=== PATIENT | female | born 1990 | race Caucasian/White ===

== ENCOUNTER 2017-10-27 15:11 | Emergency (ER) | payer OTHER ==
[~2017-10-27] VITALS: Ht 157.5 cm; Wt 59.1 kg
[2017-10-27 15:14] VITALS: BP 144/98; TEMP 99.6
[2017-10-27 16:02] LABS: BASO % 0.2 % (0.0-2.0); EOS % 0.5 % (0-4.0); GRAN # 4.4 (1.4-6.5); GRAN % 68.2 % (42.2-75.2); HEMATOCRIT 37.7 % (37.0-47.0); HEMOGLOBIN 12.2 g/dl (12.5-16.0); LYMPH # 1.5 (1.2-3.4); LYMPH % 23.6 % (20.0-51.0); MEAN CELL VOLUME 85 fl (80.0-100.0); MEAN CORPUSCULAR HEMOGLOBIN 28 pg (27.0-31.0); MEAN CORPUSCULAR HGB CONC 32 g/dl (33.0-37.0); MONO # 0.5 (0.1-0.6); MONO % 7.2 % (1.7-9.3); PLATELET COUNT 246 K/mm3 (130-400); RED BLOOD COUNT 4.44 M/mm3 (4.10-5.30); REDCELL DISTRIBUTION WIDTH-CV 14.7 % (11.5-14.5)
[2017-10-27 16:10] LABS: ALANINE AMINOTRANSFERASE 19 U/L (9-52); ALBUMIN 3.9 gm/dL (3.5-5.0); ALKALINE PHOSPHATASE 83 U/L (50-136); ANION GAP 8 mmol/L (7-16); AST,SGOT 16 U/L (15-37); BILIRUBIN,TOTAL 0.6 mg/dL (0.0-1.0); BLOOD UREA NITROGEN 13 mg/dL (7-17); CALCIUM 9.3 mg/dL (8.4-10.2); CARBON DIOXIDE 24 mmol/L (22-30); CHLORIDE 103 mmol/L (98-107); CREATININE, serum 0.69 mg/dL (0.52-1.25); GLUCOSE 93 mg/dL (74-106); LIPASE 35 U/L (23-300); POTASSIUM 4.1 mmol/L (3.4-5.0); SODIUM 135 mmol/L (137-145); TOTAL PROTEIN 7.5 gm/dL (6.4-8.2)
[2017-10-27 16:25] LABS: TROPONIN-I < 0.012 ng/mL (0.000-0.034)
[2017-10-27] MEDS ORDERED: PROTONIX 40MG T40 MG PO (17:03)
[2017-10-27 17:30] VITALS: PULSE 73
== END 2017-10-27 17:30 | disposition home or self-care (01) ==
LOC: COL.ER 15:11
PROVIDERS: Emergency Medicine
DX: S39.92XA Unspecified injury of lower back, initial encounter (principal); K21.9 Gastro-esophageal reflux disease without esophagitis; F17.210 Nicotine dependence, cigarettes, uncomplicated; X58.XXXA Exposure to other specified factors, initial encounter

== ENCOUNTER 2017-12-05 00:05 | Emergency (ER) | payer MEDICAID ==
[~2017-12-05] VITALS: Ht 157.5 cm; Wt 59.1 kg
[~2017-12-05 00:05] MED LIST: PROTONIX 40MG T40 MG PO
[2017-12-05 00:10] VITALS: PULSE 97; TEMP 97.3
[2017-12-05 06:20] VITALS: BP 111/53
== END 2017-12-05 06:20 | disposition home or self-care (01) ==
LOC: COL.ER 00:05
DX: S81.012A Laceration without foreign body, left knee, initial encounter (principal); S61.212A Laceration without foreign body of right middle finger without damage to nail, initial encounter; F10.129 Alcohol abuse with intoxication, unspecified; Y90.8 Blood alcohol level of 240 mg/100 ml or more
CPT/HCPCS: J1630; J7030

== ENCOUNTER 2017-12-17 17:37 | Emergency (ER) | payer MEDICAID ==
[2017-12-17 17:49] VITALS: BP 127/88; PULSE 98; TEMP 98.8
[2017-12-17] MEDS ORDERED: CEPHALEXIN500 M1 PO (18:06)
== END 2017-12-17 18:15 | disposition home or self-care (01) ==
LOC: COL.ER 17:37
DX: S81.021D Laceration with foreign body, right knee, subsequent encounter (principal); W19.XXXD Unspecified fall, subsequent encounter

== ENCOUNTER → 2019-01-12 | Outpatient (CLI) | payer MEDICAID ==
[~2019-01-12] MED LIST changes: +CEPHALEXIN500 M1 PO
== END ==
LOC: DIA.ED 08:57
DX: O24.419 Gestational diabetes mellitus in pregnancy, unspecified control (principal); Z3A.20 20 weeks gestation of pregnancy
CPT/HCPCS: G0108

== ENCOUNTER → 2019-02-02 | Outpatient (CLI) | payer MEDICAID | LOC: DIA.ED 09:05 | DX: O24.419 Gestational diabetes mellitus in pregnancy, unspecified control (principal); Z3A.25 25 weeks gestation of pregnancy | CPT/HCPCS: G0108 ==

== ENCOUNTER → 2019-02-16 | Outpatient (CLI) | payer MEDICAID | LOC: DIA.ED 11:24 | DX: O24.419 Gestational diabetes mellitus in pregnancy, unspecified control (principal); Z3A.28 28 weeks gestation of pregnancy | CPT/HCPCS: G0108 ==

== ENCOUNTER 2019-03-29 07:55 | Outpatient (CLI) | payer MEDICAID ==
[~2019-03-29] VITALS: Ht 157.5 cm; Wt 76.4 kg
--- NOTE | 2019-03-29 08:00 | NUR ---
Patient ambulatory to LR3, with friends/family, changed into gown, FHR/TOCO monitors placed and explained. Patients states for the "last two days have been verónica every 5 minutes on and off, and this morning my mucus plug came out, and baby has been moving normal", Patient denies any leaking of fluid or vaginal bleeding. Plan of care discussed 0810: SVE-//-2 and amniotest negative and white mucus noted on glove. Assessment completed per Be SZYMANSKI. at nurses station and updated on patient and reviews prenatals. Patient updated on plan of care.
[2019-03-29 08:10] VITALS: BP 120/72; PULSE 81; TEMP 97.7
[2019-03-29 08:30] VITALS: BP 120/75; PULSE 81
--- NOTE | 2019-03-29 09:10 | NUR ---
SVE-//-2 and patient updated that cervix unchanged from last check. Patient updated on plan of care. Dr. Orosco at nurses station and orders to discharge home with instruction.s 0919: Patient off monitor to change into clothes.
[2019-03-29 09:19] VITALS: BP 158/72; PULSE 83
--- NOTE | 2019-03-29 09:30 | NUR ---
Reviewed discharge instructions with patient. Reviewed discomforts of , early labor and kick counts. Verbalized understanding. Ambulatory off unit with friends.
== END 2019-03-29 09:30 | disposition home or self-care (01) ==
LOC: LDRO 07:55
DX: O26.893 Other specified pregnancy related conditions, third trimester (principal); Z3A.40 40 weeks gestation of pregnancy

== ENCOUNTER 2019-03-30 08:04 | Inpatient (IN) | payer MEDICAID ==
[2019-03-30] VITALS (27 sets, daily range): BP systolic 109–143; BP diastolic 54–89; PULSE 54–93; TEMP 97.7–98.9
[~2019-03-30] VITALS: Ht 157.5 cm; Wt 76.4 kg
--- NOTE | 2019-03-30 07:50 | NUR ---
Patient to LR2 via wheelchair, changed into gown, FHR/TOCO monitors placed and explained. Patient was here yesterday for contractions and SVE at that time /2. Patient states "I have continued to contract since I left and they are every 3 minutes and stronger". Patient denies leaking of fluid, vaginal bleeding, decreased movement. Plan of care discussed. 0755: SVE-/-2 and intact bag felt at this time. Patient updated on plan of care. 0820: Dr. Corral on unit and at nurses station. Reviewing FHR strip and updated on patients status. Dr. Corral states to recheck after an hour and call him with update. 0900: SVE-2--2 Dr Corral called with update and order to admit and start pitocin and penicillin if patient is okay with plan.
--- NOTE | 2019-03-30 09:25 | NUR ---
0915: FHR baseline 140-145bpm and recurrent late subtle decelerations. Patient being repositioned. 0925: IV started per Yelitza SZYMANSKI in left hand, blood obtained and to lab, LR/Penicillin infusing. 1015: Patient requesting epidrual and Mikael Drew ELECTRICAL PROJECT ENGINEER notified. 1030: Patient sits up on edge of bed for placement of epidrual and Rodger ELECTRICAL PROJECT ENGINEER at bedside. Difficulty tracing FHR due to maternal position. 1037: Single shot given and patient tolerates well. 1042: Patient repositioned and safety precautions gone over and plan of care discussed. 1050: Pitocin started at 2Mu per protocol and Dr. Ruiz order. 1110: FHR baseline 145-150bpm and recurrent late decelerations tracing. Patient wedged left. Patient updated on FHR strip and decelerations and questions answered. 1120: Parikh catheter placed and patient tolerates well. SVE-2-3/80/-2. Patient right lateral with left leg resting in stirrup. FHR tracing variable decelerations. 1130: Dr. Corral called and updated on patient and FHR strip. 1142: at nurses station and reviewing FHR strip and late decelerations. 1145: Dr. Corral at bedside and updating patient on recurrent late decelerations and the possible need for if continues. 1147:SVE-3 and AROM at this time with meconium fluid noted at this time, patient notified of meconium. Dr. Corral states he will continue to watch FHR strip and will reassess, orders to keep pitocin on at 2mU at this time. Patient turned left lateral with right leg resting in stirrup.
--- NOTE | 2019-03-30 10:52 | NUR ---
Urine drug screen positive and Dr. Corral notified.
[2019-03-30 11:10] LABS: BASO % 0.1 % (0.0-2.0); EOS # 0.2 (0.0-0.7); EOS % 2.1 % (0-4.0); GRAN # 7.8 (1.4-6.5); GRAN % 74.6 % (42.2-75.2); HEMATOCRIT 38.7 % (37.0-47.0); HEMOGLOBIN 12.4 g/dl (12.5-16.0); LYMPH # 1.6 (1.2-3.4); LYMPH % 15.3 % (20.0-51.0); MEAN CELL VOLUME 81 fl (80.0-100.0); MEAN CORPUSCULAR HEMOGLOBIN 26 pg (27.0-31.0); MEAN CORPUSCULAR HGB CONC 32 g/dl (33.0-37.0); MEAN PLATELET VOLUME 10.7 fl (7.4-10.4); MONO # 0.8 (0.1-0.6); MONO % 7.5 % (1.7-9.3); PLATELET COUNT 256 K/mm3 (130-400); REDCELL DISTRIBUTION WIDTH-CV 14.8 % (11.5-14.5)
[2019-03-30 11:18] LABS: TRICYCLIC ANTIDEPRESS URINE NEGATIVE
--- NOTE | 2019-03-30 12:00 | NUR ---
Dr. Corral continues to watch FHR strip at nurses station. 1205: Dr. Corral talks to patient about his recommendation for at this time due to late decelerations and only on 2 Mu of pitocin. Patient agrees to surgery. Pitocin off at this time. FHR continues to trace recurrent late decelerations. Plan of care and surgery discussed and questions answered. Patient prepped and abdomen cleansed with prep solution. Mikael Drew ASSISTANT MERCHANDISE MANAGER at bedside and dosing patient. 1217: Patient off monitors and back to OR via bed. Patient onto to OR bed and refuses FHR heart tones to be doppled at this time.
--- NOTE | 2019-03-30 14:30 | NUR ---
Patient updated on urine drug screen being positive for Marjiuana. Ginette SZYMANSKI discusses the needs from due to positive screening. Patient states she "did marijuana about a month ago". Patient informed that social services designee will be notified and meet with her. Patient understands.
--- NOTE | 2019-03-30 15:05 | NUR ---
connection worker filed CPS report # [id number] at patient's urine drug screen was positive for cannabinoids at delivery.
[2019-03-31 05:00] VITALS: BP 106/47; PULSE 66; TEMP 98.1
[2019-03-31 07:30] VITALS: BP 97/53; PULSE 61; TEMP 97.4
--- NOTE | 2019-03-31 09:50 | NUR ---
RUPA harrington met with the patient to discuss resources and positive UDS. RUPA harrington provided [facility] Resource Guide and reviewed some of the services [facility] offers. The patient reports she has already signed up with [facility] and has attented baby classes. The patient inquired about receiveingassistance with April. RUPA harrington provided information on where she would go to receive rent assistance. The patient does not know who the FOB is. RUPA harrington provided education on child support services and the services they offer, such as DNA testing. The patient reports she did partake in marijuana usage approximately a month ago for lower stomach pain and then again within the few days prior to delivery for the same pain. RUPA harrington informed the patient that a CPS reports was made. The patient's nurse reports the baby was full term, that the patient is appropriate with the baby, and that she as no concerns. RUPA harrington collaborated the above information with the patient's nurse.
--- NOTE | 2019-03-31 10:57 | NUR ---
Initial visit; Mom thanked Construction Trench Digger for looking in on her and offering congratulations and God's blessings for the of her son. Construction Trench Digger thanked family for choosing [facility].
[2019-03-31 15:59] VITALS: BP 118/70; PULSE 67; TEMP 98.5
[2019-03-31 20:25] VITALS: BP 126/77; PULSE 75; TEMP 98.9
[2019-04-01 07:00] VITALS: BP 119/73; PULSE 75; TEMP 98
[2019-04-01] MEDS ORDERED: MOTRIN 800800 MG/TAB PO (07:41)
[2019-04-01] MEDS ORDERED: PERCOCET 325 MG1 TA2 PO (07:41)
--- NOTE | 2019-04-01 14:18 | NUR ---
1405 RN WALKED PATIENT AND TO CAR FOR DISCHARGE. CARSEAT BASE VERIFIED TO BE SECURED IN BACKSEAT. INFANT CARSEAT PLACED IN BASE FACING BACKWARDS. ALL QUESTIONS ANSWERED AT THIS TIME BY MOTHER.
== END 2019-04-01 14:05 | disposition home or self-care (01) | DRG 787 ==
LOC: LDRO 08:04 → LDR 09:20 → OB 09:20
PROVIDERS: ADMIT Obstetrics & Gynecology
PROC: 10D00Z1 Extraction of Products of Conception, Low, Open Approach (ICD-10-PCS; principal; 2019-03-30)
DX: O48.0 Post-term pregnancy (principal); O99.324 Drug use complicating childbirth; O77.0 Labor and delivery complicated by meconium in amniotic fluid; Z3A.40 40 weeks gestation of pregnancy; Z37.0 Single live birth; O76 Abnormality in fetal heart rate and rhythm complicating labor and delivery; Z87.891 Personal history of nicotine dependence; F12.90 Cannabis use, unspecified, uncomplicated; O24.420 Gestational diabetes mellitus in childbirth, diet controlled; Z86.19 Personal history of other infectious and parasitic diseases
CPT/HCPCS: J0690; J1885; J2370; J2400; J2405; J2540; J2590; J2791; J2795; J3010; J7120

== ENCOUNTER → 2020-05-11 | Outpatient (CLI) | payer MEDICAID ==
[~2020-05-11] MED LIST changes: +MOTRIN 800800 MG/TAB PO; +MUCINEX DM 30 M1 TE1 PO; +PERCOCET 325 MG1 TA2 PO; +TESSALON P100 MG/CAP PO; +VOLTAREN 75 DR75 MG PO
== END ==
LOC: ZCOL.LAB 08:00
DX: Z20.822 Contact with and (suspected) exposure to COVID-19 (principal)

== ENCOUNTER 2020-05-16 09:47 | Inpatient (IN) | payer MEDICAID ==
[~2020-05-16] VITALS: Ht 160 cm; Wt 77.3 kg
[2020-05-16] VITALS (18 sets, daily range): BP systolic 112–187; BP diastolic 51–97; PULSE 48–105; TEMP 97.7–98.7
[~2020-05-16 09:47] MED LIST changes: -MUCINEX DM 30 M1 TE1 PO; -TESSALON P100 MG/CAP PO; -VOLTAREN 75 DR75 MG PO
[2020-05-16 10:36] LABS: EOS % 0.5 % (0-4.0); GRAN # 6.4 (1.4-6.5); GRAN % 75.9 % (42.2-75.2); HEMOGLOBIN 11.3 g/dl (12.5-16.0); LYMPH # 1.4 (1.2-3.4); LYMPH % 16.4 % (20.0-51.0); MEAN CELL VOLUME 80 fl (80.0-100.0); MEAN CORPUSCULAR HEMOGLOBIN 26 pg (27.0-31.0); MEAN CORPUSCULAR HGB CONC 32 g/dl (33.0-37.0); MEAN PLATELET VOLUME 10.3 fl (7.4-10.4); MONO # 0.6 (0.1-0.6); MONO % 6.8 % (1.7-9.3); PLATELET COUNT 250 K/mm3 (130-400); RED BLOOD COUNT 4.43 M/mm3 (4.10-5.30); REDCELL DISTRIBUTION WIDTH-CV 14.8 % (11.5-14.5)
[2020-05-16 10:40] LABS: HEMATOCRIT 35.3 % (37.0-47.0)
--- NOTE | 2020-05-16 10:40 | NUR ---
PT HERE FOR REPEAT . PLAN OF CARE REVIEWED WITH PT AND SIGNIFICANT OTHER. FHT'S FOUND IN THE 130'S WITH MODERATE VARIABILITY. IV STARTED IN RIGHT HAND WITH LR INFUSING WITHOUT DIFFICULTY. LABS OBTAINED WITH IV START AND UA OBTAINED FOR URINE DRUG SCREEN PT HAS A HISTORY OF MARIJUANA USE.
[2020-05-16 11:42] LABS: TRICYCLIC ANTIDEPRESS URINE NEGATIVE
--- NOTE | 2020-05-16 13:14 | NUR ---
PT AMBULATES TO OPERATING ROOM WITH THIS RN AND SUPPORT PERSON. POSITIONED SITTING ON SIDE OF BED. SPINAL PLACED BY SHERMAN STEWART. PT POSITIONED LYING DOWN AFTER SPINAL WITH BLANKET UNDER RIGHT HIP. FHT'S 142. LAMBERT CATHETER PLACED. DURAPREP TO ABDOMEN. BY DR CHAVES AND DR KHAN. DELIVERY OF FEMALE AT 1220. COMPLETED. PT AWAKE AND ALERT.TRANSFERRED TO PACU. DENIES PAIN. ASSESSMENT COMPLETED. FUNDUS FIRM WITH NO BLEEDING OBSERVED.
--- NOTE | 2020-05-16 13:45 | NUR ---
PT TO ROOM AFTER DISCHARGE FROM PACU. AWAKE AND ALERT. DENIES PAIN. FUNDUS FIRM WITH MINIMAL BLEEDING ON CHUX PAD.
--- NOTE | 2020-05-16 14:30 | NUR ---
PT'S BP REMAINS ELEVATED. PHONED Booker SUAREZ CRNA, AT 1415 WITH ORDER RECEIVED TO GIVE 10MG HYDRALAZINE IV X1. ADMINISTERED AT 1420.
--- NOTE | 2020-05-16 15:15 | NUR ---
PT REPORTING FEELING IS RETURNING IN HER ABDOMEN AND LEGS. REQUESTING PAIN MEDICATION FOR PAIN 5/10. WILL GIVE ONE PERCOCET
--- NOTE | 2020-05-16 17:11 | NUR ---
PT HAS QUESTIONS ON HAVING THE FATHER OF THE BABY'S NAME ON THE CERTIFICATE. EXPLAINED HIS NAME CANNOT BE ON IT WITHOUT HIS WRITTEN ACKNOWLEDGMENT OF PATERNITY SINCE THEY HAVE NEVER BEEN . SHE STATES HE WILL NOT RETURN HER CALLS AND HAS BLOCKED HER ON EVERYTHING. SHE WANTS TO KNOW HOW SHE CAN GET CHILD SUPPORT. EXPLAINED THIS IS OUT OF MY REALM OF EXPERTISE SO WILL PLACE A SOCIAL SERVICE CONSULT.
--- NOTE | 2020-05-16 18:30 | NUR ---
Reporr recieved. removed from crib and handed to patient to feed. Motrin administered per order. Updated whiteboard and reviewed POC. Able to lift both legs off the bed. Going to eat dinner then will ambulate, provide jacek-care and remove richards catheter.
--- NOTE | 2020-05-16 20:40 | NUR ---
VS and assessment completed. Ambulated well to the restroom Parikh Catheter dc'd per physician's order. Pericare provided. Fresh linens to bed. Ambulating well in room Percocet administered per request following cares.
[2020-05-17 01:05] VITALS: BP 121/60; PULSE 78; TEMP 97.5
[2020-05-17 05:00] VITALS: BP 135/67; PULSE 96; TEMP 97.8
[2020-05-17 07:45] VITALS: BP 117/59; PULSE 70; TEMP 98.1
--- NOTE | 2020-05-17 09:24 | NUR ---
Initial visit; Patient thanked Vocational Rehabilitation Specialist for offering congratulations and God's blessings for the of her daughter. Vocational Rehabilitation Specialist thanked patient for choosing [facility].
[2020-05-17 15:15] VITALS: BP 123/66; PULSE 90; TEMP 98.6
[2020-05-17 20:55] VITALS: BP 129/63; PULSE 91; TEMP 98.7
--- NOTE | 2020-05-18 18:30 | NUR ---
Report recieved. Denied bedside report. Resting in bed. Updated whiteboard and reviewd POC.
[2020-05-18 20:40] VITALS: BP 122/64; PULSE 68; TEMP 97.9
[2020-05-19 07:00] VITALS: BP 118/59; PULSE 73; TEMP 97.4
--- NOTE | 2020-05-19 09:53 | NUR ---
(Late Entry 05/18/20) Refrigeration Service Inspector responded to consult in OB as patient has a history of drug use. SW met with patient and her brother, Yair Au (ph#[phone]) is at bedside. Patient states it is okay for SW to conduct assessment while her brother is at bedside. Patient lives in [place] and states that the father of her baby is not involved. Patient has a one year old child named uX who is with Yair's girlfriend while patient is in the hospital. Patient states she works at [employer] and that her new will go to the same home daycare that Xu goes to. Patient states she is enrolled in the [facility] childcare assistance program as well as the diaper program through [employer]. Patient also is set up with [facility] through the [facility]. Patient states she plans to formula feed and can afford to get formula at [facility] until [place] for her new baby goes through. Patient reports she has needed supplies for baby including crib, diapers, wipes, bottles, etc. Patient provided [facility] Resource Guide to patient. SW addressed positive UDS for marijuana on 10/19. Patient had a follow up UDS on 02/28/21 that was negative. Patient states she has not used since her positive test on 10/19/20. Patient states she has no concerns about returning home with baby. SW made report to Child Protective Services due to positive UDS on 10/19/20. DANE collaborated the above information to RNNneka.
--- NOTE | 2020-05-19 11:15 | NUR ---
1115-Reviewed discharge instructions with patient. Patient denies questions and verbalized understanding. Discussed newly prescribed medications and reviewed last dose taken. Provided apt times for 2 and 6 week visits. 1125-Escorted patient and to car.
--- NOTE | 2020-05-20 07:29 | NUR ---
Patient's infant's cord blood was negative for illegal drugs in system.
== END 2020-05-19 11:25 | disposition home or self-care (01) | DRG 788 ==
LOC: OB 09:47
PROVIDERS: ADMIT Obstetrics & Gynecology
PROC: 10D00Z1 Extraction of Products of Conception, Low, Open Approach (ICD-10-PCS; principal; 2020-05-16)
DX: O34.211 Maternal care for low transverse scar from previous cesarean delivery (principal); Z37.0 Single live birth; O99.02 Anemia complicating childbirth; D64.9 Anemia, unspecified; Z3A.39 39 weeks gestation of pregnancy; Z87.891 Personal history of nicotine dependence
CPT/HCPCS: J0360; J0690; J1885; J2405; J2590; J2765; J2791; J7120

== ENCOUNTER 2020-09-15 11:49 | Emergency (ER) | payer MEDICAID ==
[~2020-09-15] VITALS: Ht 157.5 cm; Wt 72.7 kg
[2020-09-15 13:40] VITALS: BP 132/55; TEMP 98.4
[2020-09-15] MEDS ORDERED: VOLTAREN 75 DR75 MG PO (15:44)
[2020-09-15 15:56] VITALS: PULSE 57
== END 2020-09-15 15:56 | disposition home or self-care (01) ==
LOC: COL.ER 11:49
DX: M25.511 Pain in right shoulder (principal); X50.9XXA Other and unspecified overexertion or strenuous movements or postures, initial encounter; Y93.68 Activity, volleyball (beach) (court)

== ENCOUNTER 2020-11-09 09:18 | Outpatient (RCR) | payer MEDICAID ==
[~2020-11-09 09:18] MED LIST changes: +VOLTAREN 75 DR75 MG PO
[2020-12-13] MEDS ORDERED: MUCINEX DM 30 M1 TE1 PO (09:10)
[2020-12-13] MEDS ORDERED: TESSALON P100 MG/CAP PO (10:52)
== END 2021-01-19 15:17 | disposition home or self-care (01) ==
LOC: WSPT 09:18
DX: M25.511 Pain in right shoulder (principal)

== ENCOUNTER 2020-12-06 07:17 | Emergency (ER) | payer MEDICAID ==
[~2020-12-06] VITALS: Ht 157.5 cm; Wt 73.6 kg
[2020-12-06 07:31] VITALS: TEMP 99
[2020-12-06 08:13] LABS: STREP SCREEN NEGATIVE
[2020-12-06 09:52] VITALS: BP 120/88; PULSE 77
== END 2020-12-06 09:52 | disposition home or self-care (01) ==
LOC: COL.ER 07:17
PROVIDERS: Family Medicine
DX: J06.9 Acute upper respiratory infection, unspecified (principal)

== ENCOUNTER 2020-12-13 08:48 | Emergency (ER) | payer MEDICAID ==
[~2020-12-13] VITALS: Ht 157.5 cm; Wt 73.6 kg
[2020-12-13 09:04] VITALS: TEMP 98.4
[2020-12-13] MEDS ORDERED: MUCINEX DM 30 M1 TE1 PO (09:10)
[2020-12-13 10:27] LABS: BASO % 0.1 % (0.0-2.0); EOS # 0.1 (0.0-0.7); EOS % 1.2 % (0-4.0); GRAN % 67.6 % (42.2-75.2); HEMATOCRIT 39.7 % (37.0-47.0); HEMOGLOBIN 12.5 g/dl (12.5-16.0); LYMPH # 1.8 (1.2-3.4); LYMPH % 23.6 % (20.0-51.0); MEAN CELL VOLUME 85 fl (80.0-100.0); MEAN CORPUSCULAR HEMOGLOBIN 27 pg (27.0-31.0); MEAN CORPUSCULAR HGB CONC 32 g/dl (33.0-37.0); MONO # 0.6 (0.1-0.6); MONO % 7.4 % (1.7-9.3); PLATELET COUNT 300 K/mm3 (130-400); RED BLOOD COUNT 4.65 M/mm3 (4.10-5.30); REDCELL DISTRIBUTION WIDTH-CV 13.7 % (11.5-14.5)
[2020-12-13 10:37] LABS: ALBUMIN 4.2 gm/dL (3.5-5.0); BILIRUBIN,TOTAL 0.5 mg/dL (0.0-1.0); CALCIUM 9.2 mg/dL (8.4-10.2); CREATININE, serum 0.7 (0.52-1.25); POTASSIUM 4.2 mmol/L (3.4-5.0); TOTAL PROTEIN 7.8 gm/dL (6.4-8.2)
[2020-12-13 10:39] LABS: STREP SCREEN NEGATIVE
[2020-12-13] MEDS ORDERED: TESSALON P100 MG/CAP PO (10:52)
[2020-12-13 11:20] VITALS: BP 132/91; PULSE 54
== END 2020-12-13 11:23 | disposition home or self-care (01) ==
LOC: COL.ER 08:48
PROVIDERS: Nurse Practitioner
DX: J06.9 Acute upper respiratory infection, unspecified (principal); F17.200 Nicotine dependence, unspecified, uncomplicated; Z20.822 Contact with and (suspected) exposure to COVID-19
CPT/HCPCS: J2405; J7030; J8540

== ENCOUNTER 2021-01-27 09:09 | Emergency (ER) | payer MEDICAID ==
[~2021-01-27] VITALS: Ht 157.5 cm; Wt 72.7 kg
[~2021-01-27 09:09] MED LIST changes: +MUCINEX DM 30 M1 TE1 PO; +TESSALON P100 MG/CAP PO
[2021-01-27 09:30] VITALS: BP 124/81; PULSE 78; TEMP 98.4
== END 2021-01-27 11:20 | disposition home or self-care (01) ==
LOC: COL.ER 09:09
DX: J06.9 Acute upper respiratory infection, unspecified (principal); Z20.822 Contact with and (suspected) exposure to COVID-19

== ENCOUNTER 2021-04-04 12:06 | Emergency (ER) | payer MEDICAID ==
[~2021-04-04] VITALS: Ht 157.5 cm; Wt 75.0 kg
[2021-04-04 12:28] VITALS: TEMP 98.1
[2021-04-04 13:58] VITALS: BP 136/71; PULSE 79
== END 2021-04-04 14:05 | disposition home or self-care (01) ==
LOC: COL.ER 12:06
DX: U07.1 COVID-19 (principal)

== ENCOUNTER 2021-11-02 16:38 | Emergency (ER) | payer MEDICAID ==
[~2021-11-02] VITALS: Ht 157.5 cm; Wt 80.9 kg
[2021-11-02 16:47] VITALS: TEMP 97.8
[2021-11-02 19:19] VITALS: BP 142/841; PULSE 60
== END 2021-11-02 19:21 | disposition home or self-care (01) ==
LOC: COL.ER 16:38
DX: J06.9 Acute upper respiratory infection, unspecified (principal); Z20.822 Contact with and (suspected) exposure to COVID-19; Z28.310 Unvaccinated for COVID-19

== ENCOUNTER 2023-07-17 14:16 | Outpatient (CLI) | payer MEDICAID ==
[~2023-07-17] VITALS: Ht 160 cm; Wt 77.9 kg
[2023-07-17] VITALS (11 sets, daily range): BP systolic 109–128; BP diastolic 56–76; PULSE 98–124; TEMP 98.2–99.2
--- NOTE | 2023-07-17 14:30 | NUR ---
PATIENT AMBULATES ON TO UNIT AND TO LABOR CHECK ROOM. DENIES BLEEDING, OR LEAKING OF FLUID. REPORTS NORMAL [id number] AND DENIES CONTRACTIONS. BREATH SOUNDS DIMINISHED. ABDOMEN VERY TENDER. BOWEL SOUNDS DIMINISHED. PATIENT REPORTS SHE HASN'T EATEN MUCH IN THE LAST COUPLE OF DAYS. REPORTS HER ENTIRE BODY ACHES AND SHE IS EXPIERENCING HOT AND COLD FLASHES. PATIENT STATES THAT SHE HAS HAD CONSISTIENT PAIN IN HER GROIN AND ABDOMEN.
--- NOTE | 2023-07-17 14:35 | NUR ---
NOTIFIED OF PATIENT STATUS BY NATIVIDAD LEVI RN.ORDERS RECEIVED FOR IV INSERTION,IV FLUIDS, LABS AND MEDS. SEE EMAR FOR DETAILS.
[2023-07-17] MEDS ORDERED: Acetaminophen 500 MG TAB PO PRN ×2 (15:00→17:45)
[2023-07-17] MEDS ORDERED: LR 1,000 ML IV ONE (15:00)
[2023-07-17] MEDS ORDERED: LR 1,000 ML IV PRN (15:00)
[2023-07-17 15:30] LABS: COLLECTION METHOD CLEAN CATCH
[2023-07-17 15:36] LABS: HEMOGLOBIN 11.2 g/dl (12.5-16.0); MEAN CELL VOLUME 84 fl (80.0-100.0); MEAN CORPUSCULAR HEMOGLOBIN 28 pg (27-31); MEAN CORPUSCULAR HGB CONC 33 g/dl (33.0-37.0); MEAN PLATELET VOLUME 10.4 fl (7.4-10.4); PLATELET COUNT 153 K/mm3 (130-400); RED BLOOD COUNT 4.04 M/mm3 (4.10-5.30); REDCELL DISTRIBUTION WIDTH-CV 13.3 % (11.5-14.5)
[2023-07-17 15:42] LABS: URINE APPEARANCE CLOUDY (CLEAR/HAZY); URINE BLOOD NEGATIVE (NEGATIVE); URINE COLOR Dark Yellow (YELLOW); URINE GLUCOSE NEGATIVE (NEGATIVE); URINE KETONE 4+ (NEGATIVE); URINE NITRATE POSITIVE (NEGATIVE); URINE PROTEIN(semi-quant) 1+ (NEGATIVE)
[2023-07-17 15:51] LABS: ALBUMIN 2.5 g/dL (3.5-5.0); BILIRUBIN,TOTAL 0.7 mg/dL (0.2-1.2); CALCIUM 8.6 mg/dL (8.4-10.2); CREATININE, serum 0.59 mg/dL (0.57-1.11); POTASSIUM 3.8 mEq/L (3.5-4.5); TOTAL PROTEIN 6.3 g/dl (6.2-8.1)
[2023-07-17 15:59] LABS: MUCOUS PRESENT (NOT PRESENT); URINE BACTERIA MANY /hpf (NONE SEEN); URINE RBC 0-2 /hpf (0-2)
--- NOTE | 2023-07-17 17:07 | NUR ---
AT BEDSIDE. FHR TRACING REVIEWED. PLAN OF CARE UPDATED. NEW ORDERS INCLUDE TAMIFLU BID X 5 DAYS. ROCEPHIN X 2 DOSES Q24HR. TYLENOL Q6HR NEEDED FOR FEVER AND PAIN. DR. GENTILE WOULD LIKE HER TO STAY FOR OBSERVATION OVERNIGHT.
[2023-07-17] MEDS ORDERED: Oseltamivir 75 MG CAP PO ONE (17:15)
[2023-07-17] MEDS ORDERED: cefTRIAXone 1 G in Water For Injection,Sterile 10 ML IV SCH (17:45)
--- NOTE | 2023-07-17 19:10 | NUR ---
DR GENTILE HERE. NEW ORDERS. PT MAY BE OF CONTINOUS MONITORING AND DO FHR MONITORING Q SHIFT. PT MAY MOVE TO MB ROOM. BREATHING TREATMENT FROM RESPIRTORY.
[2023-07-17] MEDS ORDERED: Albuterol 0.083% Neb Soln 2.5 MG/3 ML UD IH ONE (20:30)
--- NOTE | 2023-07-17 21:25 | NUR ---
PT UP TO BR TO VOID, ASSISTED BACK TO BED. PT GETTING READY FOR BED. TYLENOL PO GIVEN. LIGHTS OUTS.
[2023-07-18 00:05] VITALS: TEMP 97.9
--- NOTE | 2023-07-18 00:30 | NUR ---
SCD'S PLACED ON PT PER DR BECKER NEW ORDER.
[2023-07-18 00:37] VITALS: BP 110/68; PULSE 80; TEMP 97.9
[2023-07-18 04:00] VITALS: TEMP 98.8
[2023-07-18 08:50] VITALS: BP 101/60; PULSE 84; TEMP 97.8
[2023-07-18] MEDS ORDERED: MACROBID 1100 MG/CAP PO (08:59)
[2023-07-18] MEDS ORDERED: TAMIFLU 75MG75 MG PO (08:59)
[2023-07-18] MEDS ORDERED: Nitrofurantoin (Mono/Macro) 100 MG CAP PO SCH (09:00)
[2023-07-18] MEDS ORDERED: Oseltamivir 75 MG CAP PO SCH (09:00)
[2023-07-18 12:00] VITALS: BP 106/72; PULSE 74; TEMP 98.4
--- NOTE | 2023-07-18 13:28 | NUR ---
PT VERBALLY ACCEPTING AND UNDERSTANDING OF DISCHARGE PLAN PER . THIS RN WITNESSES DISCHARGE PAPER SIGNED BY PT. PT EDUCATED ON DISCOMFORTS, CONTINUING TO TAKE PERSCRIBED MEDICATIONS, ATTENDING SCHEDULED APPOINTMENTS, AND TO CALL IF SHE HAS ANY OTHER QUESTIONS OR CONCERNS WHEN AT HOME. PT CHANGED FROM HOSPITAL GOWN AND THIS RN WALKS PT OFF UNIT, PT AGREEABLE AND UNDERSTANDING OF DISCHARGE.
== END 2023-07-18 13:28 | disposition home or self-care (01) ==
LOC: LDRO 14:16
PROVIDERS: Obstetrics & Gynecology
DX: O26.893 Other specified pregnancy related conditions, third trimester (principal); Z3A.30 30 weeks gestation of pregnancy
CPT/HCPCS: J0696; J7120

== ENCOUNTER 2023-09-16 05:04 | Inpatient (IN) | payer MEDICAID ==
[2023-09-16] VITALS (21 sets, daily range): BP systolic 114–156; BP diastolic 57–110; PULSE 57–86; TEMP 98–98.2
[~2023-09-16] VITALS: Ht 160 cm; Wt 81.4 kg
[~2023-09-16 05:04] MED LIST changes: +MACROBID 1100 MG/CAP PO; +TAMIFLU 75MG75 MG PO
--- NOTE | 2023-09-16 09:50 | NUR ---
0950PT AMBULATORY TO UNIT FOR SCHEDULED RPT C/S. PT CHANGED INTO CLEAN GOWN. PT PEED IN CUP FOR UDS. PT COMFORTABLE IN BED. 1000THIS RN AT BEDSIDE TO PLACE TOCO AND EFM. EFM TRACING CAT I. PT STATES FEELING BRAXTEN CASTRO, OR THE OCCASIONAL CTX. PT REPORTS POSITIVE MOVEMENT. PT DENIES LOF AND DENIES ANY VAGINAL BLEEDING. THIS RN DISCUSSES POC WITH PT. PT VERBALIZES UNDERSTANDING. 1005IV STARTED AT THIS TIME PER THIS RN. LABS DRAWN. IV FLUIDS STARTED.
[2023-09-16] MEDS ORDERED: LR 1,000 ML IV SCH ×2 (10:30→11:00)
[2023-09-16] MEDS ORDERED: PRENATAL TABLET PO (10:47)
[2023-09-16] MEDS ORDERED: FERROUS SU325 MG/TAB PO (10:48)
[2023-09-16] MEDS ORDERED: Ondansetron 4 MG/2 ML VIAL IV SCH (11:00)
[2023-09-16 11:08] LABS: EOS # 0.1 K/mm3 (0.0-0.7); EOS % 0.8 % (0.0-4.0); GRAN # 5.8 K/mm3 (1.4-6.5); GRAN % 72.3 % (42.2-75.2); HEMOGLOBIN 11.4 g/dl (12.5-16.0); LYMPH # 1.5 K/mm3 (1.2-3.4); LYMPH % 18.7 % (20.0-51.0); MEAN CELL VOLUME 83 fl (80.0-100.0); MEAN CORPUSCULAR HEMOGLOBIN 26 pg (27-31); MEAN CORPUSCULAR HGB CONC 32 g/dl (33.0-37.0); MEAN PLATELET VOLUME 10.7 fl (7.4-10.4); MONO # 0.6 K/mm3 (0.1-0.6); MONO % 7.9 % (1.7-9.3); PLATELET COUNT 211 K/mm3 (130-400); RED BLOOD COUNT 4.37 M/mm3 (4.10-5.30); REDCELL DISTRIBUTION WIDTH-CV 14.1 % (11.5-14.5)
[2023-09-16 11:09] LABS: HEMATOCRIT 36.2 % (37.0-47.0)
[2023-09-16] MEDS ORDERED: Phenylephrine 10 MG/ML VIAL ONE (11:13)
[2023-09-16] MEDS ORDERED: ePHEDrine 50 MG/ML VIAL ONE (11:13)
[2023-09-16 11:32] LABS: TRICYCLIC ANTIDEPRESS URINE NEGATIVE (NEGATIVE)
[2023-09-16] MEDS ORDERED: Ketorolac 30 MG/ML VIAL ONE (12:18)
[2023-09-16] MEDS ORDERED: dexAMETHasone 10 MG/ML VIAL ONE (12:26)
[2023-09-16] MEDS ORDERED: NS 10 ML IV ONE (12:26)
[2023-09-16] MEDS ORDERED: Magnes Hydrox (MOM) 80 MG/ML 30 ML CUP PO PRN (13:00)
[2023-09-16] MEDS ORDERED: Loratadine 10 MG TAB PO PRN (13:00)
[2023-09-16] MEDS ORDERED: Ondansetron 4 MG/2 ML VIAL IV PRN (14:00)
[2023-09-16] MEDS ORDERED: Measles/Mumps/Rubella Virus Vaccine Live w Diluent 0.5 ML VIAL SQ SCH (14:00)
[2023-09-16] MEDS ORDERED: oxyCODONE/Acetaminophen 5-325 MG TAB PO PRN (14:00)
[2023-09-16] MEDS ORDERED: LR 1,000 ML IV PRN (14:00)
[2023-09-16] MEDS ORDERED: Naloxone 0.4 MG/ML VIAL IV PRN (14:00)
[2023-09-16] MEDS ORDERED: Morphine 4 MG/ML VIAL IV PRN (14:00)
[2023-09-16] MEDS ORDERED: Rho(D) Imm Globulin 1,500 UNITS (300 MCG)/2 ML SYRINGE IV\\IM SCH (15:00)
[2023-09-16] MEDS ORDERED: Sennosides/Docusate 8.6-50 MG TAB PO SCH (17:00)
[2023-09-16] MEDS ORDERED: Ibuprofen 800 MG TAB PO SCH (18:47)
[2023-09-16] MEDS ORDERED: traZODone 50 MG TAB PO PRN (21:00)
[2023-09-17 04:00] VITALS: BP 130/67; PULSE 56; TEMP 98.1
[2023-09-17 07:00] VITALS: BP 135/79; PULSE 70; TEMP 98.3
--- NOTE | 2023-09-17 09:42 | NUR ---
Initial visit; Patient thanked Upper Marker for offering congratulations and God's blessings for the of her son. Upper Marker thanked patient for choosing [facility] to have her baby and stated that she hoped patient has had a good experience here. Mom says she has had a very good experience having her baby here.
[2023-09-17 16:00] VITALS: BP 128/74; PULSE 68; TEMP 98.6
[2023-09-17 20:10] VITALS: BP 121/66; PULSE 67; TEMP 98
[2023-09-18 08:00] VITALS: BP 111/60; PULSE 60
[2023-09-18 17:00] VITALS: BP 125/68; PULSE 74
[2023-09-18 19:15] VITALS: BP 124/64; PULSE 71; TEMP 98.5
[2023-09-19 08:30] VITALS: BP 113/75; PULSE 62; TEMP 97.8
== END 2023-09-19 15:20 | disposition home or self-care (01) | DRG 788 ==
LOC: OB 05:04
PROVIDERS: ADMIT Obstetrics & Gynecology
PROC: 10D00Z1 Extraction of Products of Conception, Low, Open Approach (ICD-10-PCS; principal; 2023-09-16)
DX: O34.211 Maternal care for low transverse scar from previous cesarean delivery (principal); Z3A.39 39 weeks gestation of pregnancy; Z37.0 Single live birth
CPT/HCPCS: J0665; J0690; J1100; J1885; J2371; J2405; J2765; J2791; J7120